=== PATIENT | male | born 1995 | race Caucasian/White ===

== ENCOUNTER 2020-10-16 11:01 | Emergency (ER) | payer OTHER ==
[~2020-10-16] VITALS: Ht 172.7 cm; Wt 86.3 kg
[2020-10-16] MEDS ORDERED: HYDR25TA PO (11:37)
[2020-10-16] MEDS ORDERED: PERM60CR12 TP (11:37)
[2020-10-16] MEDS ORDERED: PRED50TA PO (11:37)
[2020-10-16 11:49] VITALS: BP 149/93
--- NOTE | 2020-10-16 11:51 | PHYS DOC ---
Adult General Chief Complaint Chief Complaint: SKIN RASH/ABSCESS [facility] HPI Patient is a 25-year-old male who presents to the emergency room with a rash. Patient states that his girlfriend initially had the rash about a week ago. They look like small bites that she had in her groin and around her waist. They had somebody come treat the house for bedbugs and fleas. Their dog recently was treated for fleas as well. She has gotten some intermittent new lesions but they have been few and far between. He just started developing lesions yesterday. He initially got a few spots on his legs and then developed a large patch of spots on his chest that extends up his neck and on his cheeks. He states that it is intensely itchy. He states that when they had their house search there was no signs of bedbugs. He denies working outside or having any kind of vesicles. Review of Systems Review of Systems Complete ROS is negative unless otherwise documented in HPI Allergies Allergies Allergies Coded Allergies Type Severity Reaction Last Updated Verified No Known Drug Allergies 10/16/20 No Physical Exam Physical Exam General: Awake, alert, NAD. Well Nourished, well hydrated. Cooperative HEENT: Atraumatic, EOMI, PERRL, airway patent, moist oral mucosa Neck: Supple, trachea midline Respiratory: CTA bilaterally, normal effort, no wheezing/crackles CV: RRR, no murmur, cap refill <2 GI: Soft, nondistended, nontender, no masses MSK: No obvious deformities Skin: Warm, dry. Legs: multiple areas with small, raised erythematous lesions Chest: multiple small lesions with confluence on the chest, excoriations, areas of burrowing Neuro: A&O x3, speech NL, sensory and motor grossly intact, no focal deficits Psych: Normal affect, normal mood, not suicidal or homicidal EKG EKG [] Radiology/Procedures Radiology/Procedures [] Heart Score C/O Chest Pain: N/A Risk Factors: Risk Factors: DM, Current or recent (<one month) smoker, HTN, HLP, family history of CAD, obesity. Risk Scores: Risk Factors: DM, Current or recent (<one month) smoker, HTN, HLP, family history of CAD, obesity. Course & Med Decision Making Course & Med Decision Making Patient is 25-year-old male presents to the emergency room with a rash that him and his girlfriend have had for the last week. This is not consistent with contact dermatitis. Is unlikely that this is related to poison garrick. It is more likely that this is related to scabies as he has multiple areas that appear to be bites with burrowing. We will treat him and his girlfriend will also give him hydroxyzine for the itching. Have discussed treating the house with them. Rash is not consistent with bedbugs given the confluence nature. We will place him on steroids for itching. Patient's test results and vitals while in the ED were fully reviewed and discussed with the patient. Patient is stable and at this time does not need admission to the hospital. We have discussed strict return precautions and the importance of following up with their Primary Care Physician. Patient stated understanding and was given an opportunity to ask any questions. Patient is in agreement with plan. Dragon Disclaimer Dragon Disclaimer This electronic medical record was generated, in whole or in part, using a voice recognition dictation system. Departure Departure: Impression: Primary Impression: Scabies Disposition: HOME / SELF CARE / HOMELESS Condition: STABLE Referrals: PCP,NO (PCP) Patient Instructions: Scabies Scripts Hydroxyzine Hcl (HYDROXYZINE HCL) 25 Mg Tablet 1 TAB PO PRN BID PRN for ANXIETY / AGITATION, #6 TAB 0 Refills Be careful as this medication may make you mildly tired. I recommend not driving on this medication or operating heavy machinery. Prov: XENA SERRANO MD 10/16/20 Prednisone (PREDNISONE) 50 Mg Tablet 1 TAB PO DAILY for itching, #10 TAB You received this medication in the emergency room today. You will starting your next dose tomorrow. Prov: XENA SERRANO MD 10/16/20 Permethrin (PERMETHRIN) 60 Gm Cream..g. 1 ROBERT TP ONCE for scabies, #60 GM 1 Refill Prov: XENA SERRANO MD 10/16/20 XENA SERRANO MD Oct 16, 2020 11:51
== END 2020-10-16 12:02 | disposition home or self-care (01) ==
LOC: ER 11:01
DX: B86 Scabies (principal)
CPT/HCPCS: 99283